=== PATIENT | male | born 1970 | race Caucasian/White ===

== ENCOUNTER → 2021-09-10 | Outpatient (CLI) | payer OTHER ==
--- NOTE | 2021-09-10 09:56 | KCIC ---
INDICATION: Headache COMPARISON: None. TECHNIQUE: Multiplanar, multisequence MRI images obtained through the brain. FINDINGS: No midline shift. Basilar cistern patent. No regions of abnormal restricted diffusion. Ventricles and sulci are within normal limits in size for the patient's age. No intracranial hemorrhage or gross mass seen. There is some bowing of nasal septum. IMPRESSION: * No MRI evidence of acute infarct or hemorrhage. * Minimal high T2 signal within the periventricular white matter. This is a common finding and frequ ently secondary to mild chronic small vessel ischemic disease or sequela of migraine. Electronically signed by: Santi Gomez MD (09/10/2021 9:54 AM) [id number]
== END ==
LOC: KCIC MRI 07:53
PROVIDERS: ATTEND Family Medicine
DX: J34.2 Deviated nasal septum (principal); R51.9 Headache, unspecified
CPT/HCPCS: 70551